=== PATIENT | male | born 1995 | race Caucasian/White ===

== ENCOUNTER → 2018-02-08 | Outpatient (CLI) | payer OTHER | LOC: M RAD 15:45 | DX: M65.812 Other synovitis and tenosynovitis, left shoulder (principal); M85.422 Solitary bone cyst, left humerus | CPT/HCPCS: 73221 ==

== ENCOUNTER 2018-05-21 11:12 | Outpatient (CLI) | payer OTHER, BC ==
[2018-05-21] MEDS ORDERED: MIDAZOLAM INJ 2 MG/2 ML VIAL (J2250) As Ordered ONE (13:09)
[2018-05-21 15:30] VITALS: BP 130/75
--- NOTE | 2018-05-21 16:24 | REP ---
MR THORACIC SPINE WITHOUT CONTRAST: HISTORY: Thoracic pain. COMPARISON: 12/09/2015 There is no disc bulge or herniation. The spinal canal and the neural foramina are patent. The spinal cord is normal in signal intensity. Normal signal intensity is present in the thoracic vertebral bodies. IMPRESSION: There is no disc bulge or herniation. Electronically Signed by Shalom Groves MD 05/21/2018 04:35 P
--- NOTE | 2018-05-22 08:52 | REP ---
MRI LEFT SHOULDER WITHOUT CONTRAST 05/21/2018. Clinical history: Shoulder pain. Evaluate for rotator cuff or labral tear. Technique: Sagittal fat suppressed T2 with coronal T1/T2 and axial fat suppressed T2 and 3-D Howard gradient echo. Comparison: MR arthrogram 01/08/2014. Findings: Coronal images show type 2 acromion. Small peripheral acromial spur and a clavicular spur at the AC joint. There is a small amount of subacromial bursal fluid and I see no subdeltoid bursal fluid or significant bursal surface fraying of the supraspinatus. A type 2 acromion is seen on the sagittal view. There is a subcortical cyst now present about 6 mm size in the posterior aspect humeral head, it measured about 2 mm in 2014. Supraspinatus tendon with minimal tendinopathy and no evidence of tendon tear or retraction. Subscapularis tendon and muscle grossly intact. Trace amount of fluid in the subcoracoid bursa. Infraspinatus and teres minor tendons and muscles grossly intact. Minor tendinopathy/tendonitis on the previous study for these tendons is resolved. The coracoclavicular and coracohumeral ligaments are intact. The biceps tendon is seated in its groove. Biceps labral complex grossly intact. There is no definite labral tear. No chondromalacia. Impression: 1. Mild tendinopathy/tendinosis of the supraspinatus with a trace of subacromial subdeltoid bursal fluid and a type 2 acromion process. No full-thickness tear, retraction of the tendon or atrophy of its muscle belly. 2. Subscapularis muscle and tendon intact with the infraspinatus and teres minor tendons and muscles now grossly intact. 3. No glenohumeral joint effusion, evidence for any definite labral injury. The biceps tendon is seated in its groove in its interarticular course and biceps labral complex grossly intact. 4. Coracoclavicular and coracohumeral ligaments intact. 5. 6 mm subcortical cyst posterior aspect humeral head, on the previous study it was about 2 mm. Electronically Signed by Greg Stern MD 05/22/2018 09:11 P
== END 2018-05-21 15:35 | disposition home or self-care (01) ==
LOC: M SDC 11:12
PROVIDERS: ATTEND Physician Assistant
DX: M65.812 Other synovitis and tenosynovitis, left shoulder (principal); M54.6 Pain in thoracic spine; M85.672 Other cyst of bone, left ankle and foot
CPT/HCPCS: 72146; 73221; 99156; 99157; J2250

== ENCOUNTER 2018-12-05 05:51 | Day surgery (SDC) | payer OTHER ==
[~2018-12-05] VITALS: Ht 175.3 cm; Wt 89.7 kg
[~2018-12-05 05:51] MED LIST: MOBI15TA PO; OMEP-218 PO; TIZA4CAP PO; VENL150C43 PO
[2018-12-05] MEDS ORDERED: ROPIvacaine 0.5% 30 ML INJECTION (J2795 PER 1MG) ONE (05:52)
[2018-12-05] MEDS ORDERED: EPINEPHrine INJ 1 MG/ML 1ML VIAL ONE (05:52)
[2018-12-05] MEDS ORDERED: dexameTHASONE 10 MG/1 ML VIAL PRES.FREE (J1100) ONE (05:52)
[2018-12-05] MEDS ORDERED: MIDAZOLAM INJ 2 MG/2 ML VIAL (J2250) IV SCH (06:00)
[2018-12-05] MEDS ORDERED: LR 1,000 ML IV ONE (06:00)
[2018-12-05] MEDS ORDERED: ceFAZolin SOD 2 GM in IV 1 EA IV ONE (06:00)
[2018-12-05] MEDS ORDERED: fentaNYL 100 MCG/2 ML INJECTION (J3010) IV SCH (06:00)
[2018-12-05] MEDS ORDERED: LIDOCAINE 1% MDV 20ML VIAL SQ PRN (06:00)
[2018-12-05] MEDS ORDERED: MIDAZOLAM INJ 2 MG/2 ML VIAL (J2250) As Ordered ONE ×2 (06:33→08:04)
[2018-12-05] MEDS ORDERED: fentaNYL 100 MCG/2 ML INJECTION (J3010) As Ordered ONE (06:33)
[2018-12-05] MEDS ORDERED: EPINEPHrine 1MG/ML INJ 30ML MD-VIAL As Ordered ONE (07:10)
[2018-12-05] MEDS ORDERED: LIDOCAINE 1% MDV 20ML VIAL As Ordered ONE (07:10)
[2018-12-05] MEDS ORDERED: propofoL 200 MG/20 ML VIAL As Ordered ONE ×2 (08:04→09:11)
[2018-12-05] MEDS ORDERED: dexameTHASONE 4 MG/ML 1ML VIAL (J1100) As Ordered ONE (08:04)
[2018-12-05] MEDS ORDERED: ONDANSETRON 4MG/2ML VIAL (J2405) As Ordered ONE (08:04)
[2018-12-05] MEDS ORDERED: KETOROLAC 60 MG/2 ML VIAL (J1885) As Ordered ONE (08:04)
[2018-12-05] MEDS ORDERED: LIDOCAINE 2% INJ 100 MG/5 ML SDV (FOR ANES.) As Ordered ONE (08:04)
[2018-12-05] MEDS ORDERED: fentaNYL 250 MCG/5 ML INJECTION (J3010) As Ordered ONE (08:04)
[2018-12-05] MEDS ORDERED: ROCURONIUM BROMIDE 50 MG/5 ML VIAL As Ordered ONE (08:04)
[2018-12-05] MEDS ORDERED: SUGAMMADEX SODIUM 500 MG/5 ML VIAL (BRIDION) As Ordered ONE (08:05)
[2018-12-05] MEDS ORDERED: ePHEDrine SULFATE 25 MG/5 ML(5MG/ML) SYRINGE As Ordered ONE (08:43)
[2018-12-05] MEDS ORDERED: ONDANSETRON 4MG/2ML VIAL (J2405) IV PRN (09:45)
[2018-12-05] MEDS ORDERED: oxyCODONE 5MG TAB PO PRN (09:45)
[2018-12-05] MEDS ORDERED: LR 1,000 ML IV SCH ×2 (09:45→10:00)
[2018-12-05] MEDS ORDERED: fentaNYL 100 MCG/2 ML INJECTION (J3010) IV PRN (09:45)
[2018-12-05 11:25] VITALS: BP 130/78
--- NOTE | 2018-12-05 15:39 | RO ---
DATE OF SURGERY: 12/05/2018 PREOPERATIVE DIAGNOSIS: Left shoulder pain with possible instability. POSTOPERATIVE DIAGNOSIS: Left shoulder posterior instability. PROCEDURE: Left shoulder arthroscopic posterior labral repair. SURGEON: Dr. Kaden Mathew CREDENTIALS SPECIALIST: BENJI Cagle ANESTHESIA: General with preoperative nerve block. IV FLUIDS: Lactated Ringer's. ESTIMATED BLOOD LOSS: Less than 5 mL. IMPLANTS: Arthrex 2.9 mm biocomposite PushLock anchor times two with labral tape. CLOSURE: Nylon. PROCEDURE: The patient was identified the in preoperative holding area. The left shoulder was marked by myself. He had interscalene nerve block. He was brought to the operating room, placed supine on a well-padded operating room (OR) table with a beanbag. General anesthesia was induced. He received appropriate IV antibiotics within 1 hour of incision. Examination under anesthesia revealed 180 degrees of forward flexion, 90 of external rotation, grade 2+ posterior load and shift, grade 1 anterior load and shift. The patient was then placed into the right side down lateral decubitus position with an axillary roll and all bony prominences well padded. Bilateral Venodyne boots for deep venous thrombosis (DVT) prophylaxis. The left arm was placed into the Arthrex StaR sleeve lateral decubitus traction [place] with 10 pounds of traction. The left shoulder was then prepped and draped in the normal sterile fashion with Chloraprep. Prior to incision, a time-out was performed per hospital protocol. Terrence Subramanian was present the entire procedure and participated in all essential portions of procedure. This included patient positioning, draping, holding the arthroscope, providing retraction and rotation to the arm, retrieving sutures arthroscopically. loading suture through anchors. A modified posterior lateral portal was made with an #11 blade and then a 30 degree arthroscope introduced into the joint atraumatically. Diagnostic arthroscopy was carried out revealing no tearing in the rotator cuff, no pathology of the long head of biceps and intact chondral surfaces. There was a fissure at the chondral labral junction in the posterior inferior labrum. No tearing of the anterior superior labrum. An anterior working portal was established just above the subscapularis through the rotator interval. A second superolateral portal was also established and two cannulas placed. The arthroscope was placed into the anterior portal giving a better view of the posterior labrum and on probing of the chondral labral junction there was a fissure consistent with a posterior labral tear. There was no bumper to the posterior labrum. Given preoperative symptoms of posterior instability and intraoperative findings as well as exam under anesthesia, I felt that a posterior labral repair was indicated. The percutaneous labral repair kit was then used to create an accessory posterolateral portal to give the proper angle for drilling into the glenoid. The hooked radiofrequency cautery was then used to fully release the posteroinferior labrum off the glenoid and then labral elevators were used from the anterior portal to subperiosteally dissect the posterior capsule off the glenoid neck. The bone was scraped with the elevator create a bleeding surface. Next, a suture lasso was used to shuttle labral tape through the posterior inferior labrum and capsule and the appropriate drill used to create a socket at the 5 o'clock position. The sutures had been loaded through a biocomposite PushLock anchor. The anchor was then seated, sutures tensioned and the anchor inserted by hand, then malleted per routine. There was excellent fixation. Sutures were cut with the arthroscopic production gear cutter. This nicely restored the posterior inferior bumper. The same steps were repeated for a second PushLock anchor with labral tape with that anchor placed around the 4 o'clock position. This again nicely restored the posterior bumper. Humeral head was centrally located on the glenoid. Shoulder was then irrigated and drained. Portals closed with nylon suture. Bulky sterile dressing applied and he was carefully placed into his ARC 2 sling in the gunslinger position. All counts correct times two. Complications none. He was transferred to the postanesthesia care unit (PACU) in stable condition.
== END 2018-12-05 11:30 | disposition home or self-care (01) ==
LOC: M SDC 05:51
PROVIDERS: ATTEND Orthopaedic Surgery
DX: M25.512 Pain in left shoulder (principal); M25.312 Other instability, left shoulder; K21.9 Gastro-esophageal reflux disease without esophagitis; F41.9 Anxiety disorder, unspecified; F32.9 Major depressive disorder, single episode, unspecified; F17.290 Nicotine dependence, other tobacco product, uncomplicated; Z79.899 Other long term (current) drug therapy
CPT/HCPCS: 29807; 64415; C1713; J0690; J1100; J1885; J2250; J2405; J2795; J3010